=== PATIENT | female | born 1980 | race Caucasian/White ===

== ENCOUNTER 2017-11-02 10:36 | Emergency (ER) | payer BC, OTHER ==
[~2017-11-02] VITALS: Ht 175.3 cm; Wt 84.6 kg
[~2017-11-02 10:36] MED LIST: PRENTAB26 PO
[2017-11-02 10:41] VITALS: TEMP 37.2; Ht 175.3 cm; Wt 84.6 kg
[2017-11-02] MEDS ORDERED: ONDANSETRON INJ 2 MG/ML 2 ML VIAL IV STA (11:00)
[2017-11-02] MEDS ORDERED: MoRPHine SULFATE 4 MG/ML 1 ML CARP\\VIAL IV STA (11:00)
[2017-11-02] MEDS ORDERED: KETOROLAC TROMETHAMINE 30 MG/ML VIAL IV STA (11:00)
[2017-11-02] MEDS ORDERED: OPTIRAY 320 IV PRN (11:15)
[2017-11-02 11:18] LABS: BASO % 0.2 %; BASO ABS # 0.01 K/uL (0-0.2); EOS ABS # 0.06 K/uL (0-0.5); HEMATOCRIT 41.6 % (37-47); HEMOGLOBIN 14.2 g/dL (12.0-16.0); IG# 0.01 K/uL (0.00-0.02); LYMPH % 37.8 %; LYMPH ABS # 2.22 K/uL (1.2-3.4); MEAN CELL VOLUME 78.6 fL (80-100); MEAN CORPUSCULAR HEMOGLOBIN 26.8 pg (25-34); MEAN CORPUSCULAR HGB CONC 34.1 g/dl (32-36); MEAN PLATELET VOLUME 9.4 fL (7.4-10.4); MONO % 8.2 %; MONO ABS # 0.48 K/uL (0.11-0.59); NEUT % 52.6 %; NEUT ABS # 3.09 K/uL (1.4-6.5); PLATELET COUNT 244 K/uL (130-400); RED CELL DISTRIBUTION WIDTH CV 13.1 % (11.5-14.5); RED CELL DISTRIBUTION WIDTH SD 37.3 fL (36.4-46.3); WHITE BLOOD COUNT 5.87 K/uL (4.8-10.8)
--- NOTE | 2017-11-02 11:23 | EMERGENCY ROOM VISIT NOTE ---
History Report prepared by Ute: Meenu Whalen Under the Supervision of: Dr. Jori Alfaro M.D. First contact with patient: 10:51 Chief Complaint: ABDOMINAL PAIN Stated Complaint: RT LOWER ABD PAIN Nursing Triage Summary: Patient sent by PCP to ED to r/o appendicitis She reports RLQ pain, nausea since 10/31/17 History of Present Illness The patient is a 37 year old white female with no past medical history who presents to the ED with a cc of worsening sharp right lower abdominal pain beginning Monday, two days ago. Positive nausea. Negative fevers, chills, vomiting, hx of abdominal surgeries. The patient reports she was seen by her PCP this morning who referred her to come to the ED to rule out appendicitis. The patient states she had a normal bowel movement this morning. Her last menstrual period was October 16. Source of History: patient Onset: two days ago Position: abdomen (RLQ) Quality: sharp Timing: worsening Associated Symptoms: + nausea, + abdominal pain, No fevers, No chills, No vomiting Review of Systems See HPI for pertinent positives and negatives. A total of ten systems were reviewed and were otherwise negative. Past Medical & Surgical Surgical Problems: (1) Hx of LASIK Family History Cancer FH: diabetes mellitus FH: hypertension Social History Smoking Status: Never Smoker Marital Status: Housing Status: lives with family Current/Historical Medications Scheduled PRN Ondansetron Hcl (Zofran), 4 MG PO Q8H PRN for Nausea Tramadol (Ultram), 1 TAB PO TID PRN for Pain Allergies Coded Allergies: No Known Allergies (Unverified , 11/02/17) Physical Exam Vital Signs Date Time Temp Pulse Resp B/P (MAP) Pulse Ox O2 Delivery O2 Flow Rate FiO2 11/02/17 12:55 61 16 118/71 99 Room Air 11/02/17 11:43 60 11/02/17 11:34 62 14 141/79 99 Room Air 11/02/17 10:41 37.2 72 20 144/86 100 Room Air Physical Exam GENERAL: Awake, alert, well-appearing, NAD HENT: Normocephalic, atraumatic. EYES: Normal conjunctiva. Sclera non-icteric. NECK: Supple. No nuchal rigidity. FROM. RESPIRATORY: CTAB, no rhonchi, wheezing, crackles CARDIAC: RRR, no MRG ABDOMEN: Soft, BS+, epigastric and umbilical TTP, non surgical abdomen, negative obturators, negative psoas. MSK: no CVA TTP No chest wall TTP, no LE edema NEURO: GCS 15, CN 2-12 intact, moves all 4s on command SKIN: No rash or jaundice noted. Medical Decision & Procedures ER Provider Diagnostic Interpretation: Radiology results as stated below per my review and radiologist interpretation: ABD/PELVIS IV CONTRAST ONLY FINDINGS: The lung bases are clear. Liver spleen and pancreas are unremarkable. Right kidney is negative for hydronephrosis. 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 There is a millimeter calcification at this site. There is no evidence for an obstructing urinary tract calculus. The bowel pattern is nonobstructive. The appendix is normal. There is a 1.5 cm right ovarian cyst with a 1.7 cm left ovarian cyst. Uterus is retroflexed. Bladder is midline. There are no bladder calcifications. IMPRESSION: 1. Small bilateral ovarian cysts.. 2. Nonobstructing left renal cortical calcification. 3. Nonobstructive bowel pattern. 4. Normal appendix. The above report was generated using voice recognition software. It may contain grammatical, syntax or spelling errors. Electronically signed by: Jori Cornell M.D. PELVIC COMPLETE NON OB FINDINGS: The uterus measured 8.2 cm. The endometrial stripe measured 7 mm. The right ovary measured 3.2 cm with normal vascular flow. The left ovary measured 3.3 cm with normal vascular flow. Small bilateral ovarian follicular cysts. There was no evidence of pathologic free pelvic fluid. IMPRESSION: Small bilateral ovarian follicular cysts measuring up to 1.4 cm maximum dimension. Otherwise normal pelvic ultrasound. The above report was generated using voice recognition software. It may contain grammatical, syntax or spelling errors. Electronically signed by: Jori Cornell M.D. Laboratory Results 11/02/17 10:55 Red Blood Count 5.29, Mean Corpuscular Volume 78.6, Mean Corpuscular Hemoglobin 26.8, Mean Corpuscular Hemoglobin Concent 34.1, Mean Platelet Volume 9.4, Neutrophils (%) (Auto) 52.6, Lymphocytes (%) (Auto) 37.8, Monocytes (%) (Auto) 8.2, Eosinophils (%) (Auto) 1.0, Basophils (%) (Auto) 0.2, Neutrophils # (Auto) 3.09, Lymphocytes # (Auto) 2.22, Monocytes # (Auto) 0.48, Eosinophils # (Auto) 0.06, Basophils # (Auto) 0.01 11/02/17 10:55 Test 11/02/17 10:50 11/02/17 10:55 Urine Color YELLOW Urine Appearance CLEAR (CLEAR) Urine pH 6.5 (4.5-7.5) Urine Specific [place] 1.009 (1.000-1.030) Urine Protein NEG (NEG) Urine Glucose (UA) NEG (NEG) Urine Ketones NEG (NEG) Urine Occult Blood TRACE (NEG) Urine Nitrite NEG (NEG) Urine Bilirubin NEG (NEG) Urine Urobilinogen NEG (NEG) Urine Leukocyte Esterase NEG (NEG) Urine WBC (Auto) 1-5 /hpf (0-5) Urine RBC (Auto) 0-4 /hpf (0-4) Urine Hyaline Casts (Auto) 0 /lpf (0-5) Urine Epithelial Cells (Auto) 20-30 /lpf (0-5) Urine Bacteria (Auto) NEG (NEG) Urine Test NEG (NEG) White Blood Count 5.87 K/uL (4.8-10.8) Red Blood Count 5.29 M/uL (4.2-5.4) Hemoglobin 14.2 g/dL (12.0-16.0) Hematocrit 41.6 % (37-47) Mean Corpuscular Volume 78.6 fL (80-100) Mean Corpuscular Hemoglobin 26.8 pg (25-34) Mean Corpuscular Hemoglobin Concent 34.1 g/dl (32-36) Platelet Count 244 K/uL (130-400) Mean Platelet Volume 9.4 fL (7.4-10.4) Neutrophils (%) (Auto) 52.6 % Lymphocytes (%) (Auto) 37.8 % Monocytes (%) (Auto) 8.2 % Eosinophils (%) (Auto) 1.0 % Basophils (%) (Auto) 0.2 % Neutrophils # (Auto) 3.09 K/uL (1.4-6.5) Lymphocytes # (Auto) 2.22 K/uL (1.2-3.4) Monocytes # (Auto) 0.48 K/uL (0.11-0.59) Eosinophils # (Auto) 0.06 K/uL (0-0.5) Basophils # (Auto) 0.01 K/uL (0-0.2) RDW Standard Deviation 37.3 fL (36.4-46.3) RDW Coefficient of Variation 13.1 % (11.5-14.5) Immature Granulocyte % (Auto) 0.2 % Immature Granulocyte # (Auto) 0.01 K/uL (0.00-0.02) Anion Gap 3.0 mmol/L (3-11) Est Creatinine Clear Calc Drug Dose 103.0 ml/min Estimated GFR () 99.3 Estimated GFR (Non- 85.7 BUN/Creatinine Ratio 15.0 (10-20) Calcium Level 9.8 mg/dl (8.5-10.1) Magnesium Level 2.4 mg/dl (1.8-2.4) Total Bilirubin 0.6 mg/dl (0.2-1) Direct Bilirubin 0.1 mg/dl (0-0.2) Aspartate Amino Transf (AST/SGOT) 21 U/L (15-37) Alanine Aminotransferase (ALT/SGPT) 34 U/L (12-78) Alkaline Phosphatase 81 U/L (45-117) Total Protein 8.7 gm/dl (6.4-8.2) Albumin 4.4 gm/dl (3.4-5.0) Lipase 138 U/L (73-393) Laboratory results reviewed by me Medications Administered Medications (Trade) Dose Ordered Sig/Yana Route Start Time Stop Time Status Last Admin Dose Admin Morphine Sulfate (MoRPHine SULFATE INJ) 4 mg NOW STAT IV 11/02/17 11:00 11/02/17 11:01 DC 11/02/17 11:08 4 MG Ketorolac Tromethamine (Toradol Inj) 30 mg NOW STAT IV 11/02/17 11:00 11/02/17 11:01 DC 11/02/17 11:06 30 MG Ondansetron HCl (Zofran Inj) 4 mg NOW STAT IV 11/02/17 11:00 11/02/17 11:01 DC 11/02/17 11:05 4 MG Tramadol HCl (Ultram Tab) 50 mg NOW STAT PO 11/02/17 14:24 11/02/17 14:25 DC 11/02/17 14:37 50 MG ED Course 1056: The patient was evaluated in room B5. A complete history and physical exam was performed. 1212: I updated the patient on her test results we will do a pelvic US. She has an OBGYN appointment for Monday. 1417: On reassessment, the patient is feeling back to her baseline. 1422: I reevaluated the patient. Discussed results and discharge instructions: She verbalized understanding and agreement. The patient is ready for discharge. Medical Decision The patient is a 37 year old white female with no past medical history who presents to the ED with a cc of worsening constant sharp right lower abdominal pain beginning Monday, two days ago. Nursing notes reviewed. Ancillary studies and prior records reviewed. Differential diagnosis: Etiologies such as appendicitis, diverticulitis, PUD, biliary pathology, UTI, pancreatitis, obstruction, mesenteric ischemia, aortic pathology, infections, inflammatory bowel disease, renal colic, as well as others were entertained. Patient was seen and evaluated the bedside. Patient noted that she had some had some worsening right-sided lower abdominal pain beginning Monday. Patient was seen in clinic and referred here for further evaluation treatment. On exam the patient has a negative obturator's and psoas but does have some periumbilical as well as some right-sided abdominal discomfort. Patient did have blood work completed, urinalysis, urine test, CT the abdomen pelvis. The patient has not had any prior procedures or surgeries on the abdomen and denies any prior history of ovarian or uterine problems. Patient's blood work is fairly unremarkable. Patient CT the abdomen pelvis is negative acute. Patient did have a pelvic ultrasound completed that did show bilateral follicular cysts. They are not greater than 1.5 cm. Less likely torsion or that the cystic torsed. Upon reassessment the patient was feeling mildly improved. The patient does have an SPORT PSYCHOLOGIST follow-up appointment on Monday. Patient was given pain medication for home and was told to continue Motrin and Tylenol [id number]. Patient was also further instructed to try topical treatments as well as moist heat and/or light stretching. Patient was deemed suitable for outpatient follow-up and treatment at this time. Patient was given strict follow-up, discharge, and return precautions. All questions were answered. Patient was deemed suitable for outpatient follow-up at this time. Patient agreed with the plan of care and was safely discharged home. Medication Reconcilliation Current Medication List: was personally reviewed by me Blood Pressure Screening Patient's blood pressure: Normal blood pressure Impression Primary Impression: Ovarian cyst Additional Impression: Abdominal pain Scribe Attestation The scribe's documentation has been prepared under my direction and personally reviewed by me in its entirety. I confirm that the note above accurately reflects all work, treatment, procedures, and medical decision making performed by me. Departure Information Dispostion Home / Self-Care Prescriptions Ondansetron Hcl (ZOFRAN) 4 Mg Tab 4 MG PO Q8H Y for Nausea, #12 TAB Prov: Jori Alfaro M.D. 11/02/17 Tramadol (Ultram) 50 Mg Tab 1 TAB PO TID Y for Pain for 5 Days, #15 TAB Prov: Jori Alfaro M.D. 11/02/17 Referrals Rhea Jimenez D.O. (PCP) Forms Call Back Authorization, HOME CARE DOCUMENTATION FORM, IMPORTANT VISIT INFORMATION Patient Instructions Cysts Ovarian, My [facility] Additional Instructions Please return to the emergency department if you have worsening or recurrent symptoms not amenable to at-home treatment. Please call for a follow-up appointment with her primary care physician. Please take your medications as prescribed. If you have other concerns and/or complaints please feel free to also call your primary care physician's office or return the ED for further evaluation, management, and treatment. You may take 800 mg Ibuprofen every 6 hours as needed for pain/fever with food unless told by your physician not to take NSAIDs. You may take tylenol 1000 mg every 6 hours as needed for pain/fever unless told by your physician to not take it or have liver problems. You may take motrin and tylenol separately or at the same time. If you have breakthrough pain he may take the tramadol. Please be informed this is a nonnarcotic however it can make you sleepy or sedated so only use if you do not require full attention. Please keep your follow-up appointment with your SPORT PSYCHOLOGIST physician on Monday. Take your medications as prescribed. You have been examined and treated today on an emergency basis only. This is not a substitute for, or an effort to provide, complete comprehensive medical care. It is impossible to recognize and treat all injuries or illnesses in a single emergency department visit. It is therefore important that you follow up closely with [facility], your PCP, and/or your specialist(s). Call as soon as possible for an appointment. Thank you for your time and consideration. I look forward to speaking with you again soon. Please don't hesitate to call us if you have any questions. Problem Qualifiers Primary Impression: Ovarian cyst Laterality: bilateral Qualified Codes: N83.201 - Unspecified ovarian cyst, right side; N83.202 - Unspecified ovarian cyst, left side Additional Impression: Abdominal pain Abdominal location: right lower quadrant Qualified Codes: R10.31 - Right lower quadrant pain
--- NOTE | 2017-11-02 11:32 | DIAGNOSTIC IMAGING REPORT ---
ABD/PELVIS IV CONTRAST ONLY CT DOSE: 544.47 mGy.cm HISTORY: Pain RLQ pain, PCP refer, r/o appy TECHNIQUE: Multiaxial CT images of the abdomen and pelvis were performed following the use of intravenous contrast. A dose lowering technique was utilized adhering to the principles of ALARA. COMPARISON STUDY: None. FINDINGS: The lung bases are clear. Liver spleen and pancreas are unremarkable. Right kidney is negative for hydronephrosis. 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 There is a millimeter calcification at this site. There is no evidence for an obstructing urinary tract calculus. The bowel pattern is nonobstructive. The appendix is normal. There is a 1.5 cm right ovarian cyst with a 1.7 cm left ovarian cyst. Uterus is retroflexed. Bladder is midline. There are no bladder calcifications. IMPRESSION: 1. Small bilateral ovarian cysts.. 2. Nonobstructing left renal cortical calcification. 3. Nonobstructive bowel pattern. 4. Normal appendix. The above report was generated using voice recognition software. It may contain grammatical, syntax or spelling errors. Electronically signed by: Jori Cornell M.D. 11/02/2017 11:31 AM Dictated Date/Time: 11/02/2017 11:27 AM
[2017-11-02 11:45] LABS: ALBUMIN 4.4 gm/dl (3.4-5.0); CALCIUM 9.8 mg/dl (8.5-10.1); CREATININE 0.86 mg/dl (0.60-1.20); POTASSIUM 3.7 mmol/L (3.5-5.1)
[2017-11-02 11:48] LABS: TOTAL PROTEIN 8.7 gm/dl (6.4-8.2)
--- NOTE | 2017-11-02 14:07 | DIAGNOSTIC IMAGING REPORT ---
PELVIC COMPLETE NON OB CLINICAL HISTORY: R sided lower ab pain, neg CT, normal appendix PAIN COMPARISON STUDY: None FINDINGS: The uterus measured 8.2 cm. The endometrial stripe measured 7 mm. The right ovary measured 3.2 cm with normal vascular flow. The left ovary measured 3.3 cm with normal vascular flow. Small bilateral ovarian follicular cysts. There was no evidence of pathologic free pelvic fluid. IMPRESSION: Small bilateral ovarian follicular cysts measuring up to 1.4 cm maximum dimension. Otherwise normal pelvic ultrasound. The above report was generated using voice recognition software. It may contain grammatical, syntax or spelling errors. Electronically signed by: Jori Cornell M.D. 11/02/2017 2:06 PM Dictated Date/Time: 11/02/2017 2:05 PM
[2017-11-02] MEDS ORDERED: TRAM-10 PO (14:21)
[2017-11-02] MEDS ORDERED: ONDA4TAB46 PO (14:23)
[2017-11-02] MEDS ORDERED: TRAMADOL HCL 50 MG TAB PO STA (14:24)
[2017-11-02 14:35] VITALS: BP 107/72; PULSE 53; O2SAT 100
== END 2017-11-02 14:35 | disposition home or self-care (01) ==
LOC: C.EDB 10:37
DX: N83.01 Follicular cyst of right ovary (principal); N83.02 Follicular cyst of left ovary; R10.31 Right lower quadrant pain